=== PATIENT | female | born 1945 | race Caucasian/White ===

== ENCOUNTER 2018-10-31 17:13 | Emergency (ER) | payer OTHER, MEDICAID ==
[~2018-10-31] VITALS: Ht 167.6 cm; Wt 59.9 kg
[2018-10-31 17:25] VITALS: Ht 167.6 cm; Wt 59.9 kg
[2018-10-31 18:23] VITALS: BP 150/69
== END 2018-10-31 18:23 | disposition home or self-care (01) ==
LOC: ED 17:13
DX: I10 Essential (primary) hypertension (principal); Z90.710 Acquired absence of both cervix and uterus

== ENCOUNTER 2020-05-12 12:12 | Emergency (ER) | payer OTHER, MEDICAID ==
[~2020-05-12] VITALS: Ht 167.6 cm; Wt 65.8 kg
[2020-05-12 13:38] VITALS: BP 158/59; Ht 167.6 cm; Wt 65.8 kg
== END 2020-05-12 16:12 | disposition home or self-care (01) ==
LOC: ED 12:12
DX: F32.9 Major depressive disorder, single episode, unspecified (principal); I10 Essential (primary) hypertension; E03.9 Hypothyroidism, unspecified; Z76.0 Encounter for issue of repeat prescription

== ENCOUNTER 2020-06-07 14:04 | Emergency (ER) | payer OTHER, MEDICAID ==
[~2020-06-07] VITALS: Ht 167.6 cm; Wt 66.2 kg
[2020-06-07 14:22] VITALS: BP 157/64; Ht 167.6 cm; Wt 66.2 kg
== END 2020-06-07 14:46 | disposition home or self-care (01) ==
LOC: ED 14:04
DX: Z76.0 Encounter for issue of repeat prescription (principal); I10 Essential (primary) hypertension

== ENCOUNTER 2020-06-13 10:56 | Emergency (ER) | payer OTHER ==
[~2020-06-13] VITALS: Ht 167.6 cm; Wt 64.4 kg
[2020-06-13 11:01] VITALS: Ht 167.6 cm; Wt 64.4 kg
[2020-06-13 12:57] VITALS: BP 165/63
== END 2020-06-13 12:58 | disposition home or self-care (01) ==
LOC: ED 10:56
DX: F41.9 Anxiety disorder, unspecified (principal); I10 Essential (primary) hypertension; Z76.0 Encounter for issue of repeat prescription